=== PATIENT | female | born 1950 | race Caucasian/White ===

== ENCOUNTER 2016-09-25 18:58 | Emergency (ER) | payer MEDICARE ==
[~2016-09-25 18:58] MED LIST: BENADRYL 50 MG50 MG PO; DEPAKOT500 PO; PROLIXIN 1 MG TA1 MG PO
== END 2016-09-25 19:09 | disposition home or self-care (01) ==
LOC: ER 18:58
DX: M25.511 Pain in right shoulder (principal); Z88.5 Allergy status to narcotic agent; Z79.899 Other long term (current) drug therapy
CPT/HCPCS: 96372; 99283

== ENCOUNTER 2016-10-20 11:43 | Emergency (ER) | payer MEDICARE | END 2016-10-20 14:35 | disposition home or self-care (01) | LOC: ER 11:43 | DX: M25.521 Pain in right elbow (principal); M25.561 Pain in right knee; M25.461 Effusion, right knee; I10 Essential (primary) hypertension; F41.9 Anxiety disorder, unspecified; F17.200 Nicotine dependence, unspecified, uncomplicated; Z88.5 Allergy status to narcotic agent; Z79.899 Other long term (current) drug therapy; W19.XXXA Unspecified fall, initial encounter | CPT/HCPCS: 73080-RT; 73560-RT; 99283; A9270-GY ==